=== PATIENT | female | born 1975 | race Two or more races ===

== ENCOUNTER 2019-11-15 00:35 | Emergency (ER) | payer MEDICAID ==
[~2019-11-15] VITALS: Ht 167.6 cm; Wt 99.8 kg
[2019-11-15 01:31] VITALS: BP 133/77
[2019-11-15 02:25] LABS: Basophils # (auto) 0 uL; Basophils % (auto) 0.4 % (0.0-2.0); Eosinophils # (auto) 0.1 uL; Hematocrit 37.2 % (36.0-46.0); Hemoglobin 12.3 g/dL (12.2-16.2); Lymphocytes # (auto) 1.5 uL; Lymphocytes % (auto) 21.9 % (10.0-50.0); Mean Corpuscular Hemoglobin 27.4 pg (28.0-32.0); Mean Corpuscular Hgb Conc. 33.2 g/dL (32.0-36.0); Mean Corpuscular Volume 82.6 fL (80.0-100.0); Monocytes # (auto) 0.4 uL; Monocytes % (auto) 5.1 % (0.0-12.0); Neutrophils % (auto) 70.6 % (37.0-80.0); Platelet Count (auto) 275 10^3/uL (140-450); Red Cell Distribution Width 15.7 % (11.8-14.3)
[2019-11-15 02:38] LABS: INR 0.99 (0.9-1.15); Partial Thromboplastin Time 30.5 sec (23.64-32.05)
[2019-11-15 02:41] LABS: Alanine Aminotransferase 18 U/L (13-56); Albumin 3.7 g/dL (3.4-5.0); Anion Gap 7 (5-15); Aspartate Aminotransferase 9 U/L (15-37); Blood Urea Nitrogen 12 mg/dL (7-18); Calcium 8.5 mg/dL (8.5-10.1); Carbon Dioxide 24 mmol/L (21-32); Chloride 108 mmol/L (98-107); GFR African American 108 mL/min; GFR Non-African American 90 mL/min; Glucose 106 mg/dL (74-106); Magnesium 2.1 mg/dL (1.6-2.6); Potassium 3.5 mmol/L (3.5-5.1); Sodium 139 mmol/L (136-145)
[2019-11-15 02:46] LABS: Alkaline Phosphatase 87 U/L (45-117); Bilirubin, Total 0.2 mg/dL (0.2-1.0); Total Protein 7.6 g/dL (6.4-8.2)
== END 2019-11-15 06:12 | disposition left against medical advice (07) ==
LOC: ER 00:37
DX: R05 Cough (principal); Z53.21 Procedure and treatment not carried out due to patient leaving prior to being seen by health care provider
CPT/HCPCS: 36415; 71046; 80053; 83735; 83880; 84443; 84484; 85025; 85610; 85730; 93005

== ENCOUNTER 2021-03-08 01:25 | Emergency (ER) | payer MEDICAID ==
[~2021-03-08] VITALS: Ht 167.6 cm; Wt 97.5 kg
[2021-03-08 02:33] LABS: Basophils # (auto) 0 10 ^3/uL (0-0.2); Basophils % (auto) 0.4 % (0.0-2.0); Eosinophils # (auto) 0.1 10 ^3/uL (0-0.8); Hematocrit 35.8 % (36.0-46.0); Hemoglobin 11.9 g/dL (12.2-16.2); Lymphocytes # (auto) 1.7 10 ^3/uL (0.4-5.4); Lymphocytes % (auto) 21.6 % (10.0-50.0); Mean Corpuscular Hemoglobin 27.7 pg (28.0-32.0); Mean Corpuscular Hgb Conc. 33.2 g/dL (32.0-36.0); Mean Corpuscular Volume 83.6 fL (80.0-100.0); Monocytes # (auto) 0.4 10 ^3/uL (0-1.3); Monocytes % (auto) 5.7 % (0.0-12.0); Neutrophils # (auto) 5.5 10 ^3/uL (1.6-8.6); Neutrophils % (auto) 71.3 % (37.0-80.0); Platelet Count (auto) 292 10^3/uL (140-450); Red Blood Cells 4.28 10^6/uL (4.0-5.20); Red Cell Distribution Width 15.5 % (11.8-14.3); White Blood Cell 7.7 10^3/uL (4.4-10.8)
[2021-03-08 02:41] LABS: Albumin 3.8 g/dL (3.4-5.0); Anion Gap 6 (5-15); BUN/Creatinine Ratio 18.2; Blood Urea Nitrogen 14 mg/dL (7-18); Calcium 9.1 mg/dL (8.5-10.1); Carbon Dioxide 26 mmol/L (21-32); Chloride 108 mmol/L (98-107); GFR African American 105 mL/min; GFR Non-African American 87 mL/min; Glucose 111 mg/dL (74-106); Potassium 3.7 mmol/L (3.5-5.1); Sodium 140 mmol/L (136-145)
[2021-03-08 02:46] LABS: Alanine Aminotransferase 23 U/L (13-56); Alkaline Phosphatase 87 U/L (45-117); Aspartate Aminotransferase 17 U/L (15-37); Bilirubin, Total 0.2 mg/dL (0.2-1.0); Total Protein 7.6 g/dL (6.4-8.2)
[2021-03-08 04:49] VITALS: BP 111/76
== END 2021-03-08 06:20 | disposition home or self-care (01) ==
LOC: ER 01:28
DX: F41.9 Anxiety disorder, unspecified (principal); R11.2 Nausea with vomiting, unspecified
CPT/HCPCS: 36415; 71045; 80053; 84484; 85025; 93005

== ENCOUNTER → 2023-02-01 | Outpatient (CLI) | payer MEDICAID | END | disposition home or self-care (01) | LOC: Rad HDHVI 16:12 | PROVIDERS: ATTEND Internal Medicine Cardiovascular Disease | DX: I10 Essential (primary) hypertension (principal); R00.2 Palpitations | CPT/HCPCS: 93306 ==